=== PATIENT | female | born 1940 | race Caucasian/White ===

== ENCOUNTER → 2017-06-22 | Outpatient (CLI) | payer OTHER ==
[~2017-06-22] MED LIST: ACID REDUCER20 MG PO; DILTIAZEM 24HR240 M1 PO; METO50ER PO; MIRALAX17 GM PO; Multiple Vitam1 EACH PO; Norco 7.5-3251 EACH PO; Prinivil10 MG PO
== END | disposition home or self-care (01) ==
LOC: LAB EV 15:06
DX: J06.9 Acute upper respiratory infection, unspecified (principal)
CPT/HCPCS: 87070

== ENCOUNTER 2018-06-04 07:26 | Day surgery (SDC) | payer OTHER ==
[~2018-06-04] VITALS: Ht 162.6 cm; Wt 89.0 kg
[~2018-06-04 07:26] MED LIST changes: +ACID REDUCER 1150 MG PO; +ATOR10 PO
--- NOTE | 2018-06-04 10:50 | NUR ---
06/04/18 1050 Stacy Rivera INDIGO CARMINE USED FOR ABNORMAL MUCOSA BXS BESIDE CLIP.
== END 2018-06-04 12:25 | disposition home or self-care (01) ==
LOC: ORSCSDS 07:26
PROVIDERS: Student in an Organized Health Care Education/Training Program
PROC: 0DB58ZX Excision of Esophagus, Via Natural or Artificial Opening Endoscopic, Diagnostic (ICD-10-PCS; principal; 2018-06-04 08:45)
PROC: 3E0H8GC Introduction of Other Therapeutic Substance into Lower GI, Via Natural or Artificial Opening Endoscopic (ICD-10-PCS; principal; 2018-06-04 08:45)
PROC: 0DBH8ZX Excision of Cecum, Via Natural or Artificial Opening Endoscopic, Diagnostic (ICD-10-PCS; principal; 2018-06-04 08:45)
DX: K21.9 Gastro-esophageal reflux disease without esophagitis (principal); K22.0 Achalasia of cardia; Z86.010 Personal history of colon polyps; D12.0 Benign neoplasm of cecum; K57.30 Diverticulosis of large intestine without perforation or abscess without bleeding; K64.8 Other hemorrhoids; I10 Essential (primary) hypertension; E78.5 Hyperlipidemia, unspecified; Z79.899 Other long term (current) drug therapy
CPT/HCPCS: 88305; J7120

== ENCOUNTER 2018-07-13 12:12 | Inpatient (IN) | payer OTHER ==
[~2018-07-13] VITALS: Ht 160 cm; Wt 84.2 kg
--- NOTE | 2018-07-14 07:31 | NUR ---
Ambulatory in Day Surgery Patient states colon prep results clear. History, Chart, Medications and Allergies reviewed before start of procedure. Lungs clear T/O to Auscultation. Patient confirms NPO status and agrees with scheduled surgery. Pre-Op teaching done. Pt verbalizes understanding.
--- NOTE | 2018-07-14 09:55 | NUR ---
07/14/18 0955 Lor Sorensen. SENT TO LAB, CONFIRMED POLYP LOCATION PER PATHOLOGIST.
--- NOTE | 2018-07-14 18:25 | NUR ---
SUMMARY PT S/P LAP COLECTOMY THIS SHIFT. VSS. PT SITTING UP IN CHAIR, EATING DINNER. REPORTS PAIN 04/09 TO ABD. DENIES N/V OR SOB. CALL LIGHT IN REACH.
[2018-07-15 05:10] LABS: BASOPHILS ABSOLUTE AUTO 0.02 K/mm3 (0.00-0.23); BASOPHILS PERCENT AUTO 0 % (0-2); EOSINOPHILS PERCENT AUTO 0 % (0-6); Hemoglobin 10.4 g/dL (11.5-16.0); IMMATURE GRAN ABSOLUTE AUTO 0.03 K/mm3 (0.00-0.10); IMMATURE GRAN PERCENT AUTO 0 % (0-1); LYMPHOCYTES ABSOLUTE AUTO 1.54 K/mm3 (0.84-5.20); LYMPHOCYTES PERCENT AUTO 15 % (21-46); MONOCYTES ABSOLUTE AUTO 0.83 K/mm3 (0.16-1.47); MONOCYTES PERCENT AUTO 8 % (4-13); Mean Corpuscular HGB 28.9 pg (26.0-34.0); Mean Corpuscular HGB Conc 31.5 g/dL (31.5-36.5); Mean Corpuscular Volume 92 fL (80-100); Mean Platelet Volume 9.5 fL (9.1-12.4); NEUTROPHILS ABSOLUTE AUTO 7.78 K/mm3 (1.96-9.15); NEUTROPHILS PERCENT AUTO 76 % (41-73); Platelet Count 233 K/mm3 (150-400); RDW Coefficient Variation 15.5 % (11.7-14.2); RDW Standard Deviation 52.5 fL (35.1-46.3)
[2018-07-15 05:28] LABS: Anion Gap 8 mmol/L (6-16); Blood Urea Nitrogen 10 mg/dL (8-24); Bun/Creatinine Ratio 12.1 (12.0-20.0); CO2, Blood 26 mmol/L (21-32); Calcium, Blood 8.1 mg/dL (8.5-10.1); Chloride, Blood 105 mmol/L (98-108); Creatinine, Blood 0.83 mg/dL (0.40-1.00); Glomerular Filtration Rate >60 (60-); Glucose, Blood 115 mg/dL (70-99); Potassium, Blood 4.1 mmol/L (3.5-5.5); Sodium, Blood 139 mmol/L (136-145)
--- NOTE | 2018-07-15 05:53 | NUR ---
POD 1 S/P COLECTOMY. PT VSS T/O NIGHT. DRESSINGS CDI. PT REP MINIMAL PAIN, PAIN MGD W/ORAL PAIN MEDS W/REP RELIEF. PT NAKUL CLEAR LIQ PO, NO C/O N/V, REP NO FLATUS YET. IVF CONT PER ORDERS. PLAN TO D/C PEREZ CATH THIS AM. PT UP OOB W/FWW+1 ASSIST, NAKUL WELL. PT USING CALL LIGHT FOR ASSISTANCE, WILL CONT TO MONITOR UNTIL REP GIVEN TO ONCOMING RN.
--- NOTE | 2018-07-15 11:23 | NUR ---
EDIT FROM PREVIOUS ASSESSMENT. PT VOIDED 250 ML, FIRST VOID AFTER PEREZ REMOVAL AT TIME PREVIOUSLY NOTED IN OUTPUT. URINARY ASSESSMENT IS WNL.
--- NOTE | 2018-07-15 17:50 | NUR ---
SUMMARY PATIENT DENIES PAIN, REPORTS "JUST SLIGHT SORENESS". HAS AMBULATED IN HALLWAYS X3 AND HAS SAT IN CHAIR MOST OF SHIFT. PATIENT NAKUL CLEAR LIQUIDS WITHOUT NAUSEA
--- NOTE | 2018-07-15 21:32 | NUR ---
PHYSICIAN COMMUNICATION 2129. DR. ALLISON NOTIGIED PT HR 54 T/O DAY. 52-54 DURING LAST FEW HRS. PT BT AVGS AND HOME DOSE OF METOPROLOL XL DISCUSSED. PARAMETERS FOR HR FOR METOPROLOL XL GIVEN AND ORDER TO HOLD BEDTIME DOSE TONIGHT.
[2018-07-16 04:46] LABS: BASOPHILS ABSOLUTE AUTO 0.02 K/mm3 (0.00-0.23); BASOPHILS PERCENT AUTO 0 % (0-2); EOSINOPHILS ABSOLUTE AUTO 0.06 K/mm3 (0.00-0.68); EOSINOPHILS PERCENT AUTO 1 % (0-6); Hematocrit 36.1 % (33.0-51.0); Hemoglobin 11.4 g/dL (11.5-16.0); IMMATURE GRAN ABSOLUTE AUTO 0.05 K/mm3 (0.00-0.10); IMMATURE GRAN PERCENT AUTO 0 % (0-1); LYMPHOCYTES ABSOLUTE AUTO 3.75 K/mm3 (0.84-5.20); LYMPHOCYTES PERCENT AUTO 33 % (21-46); MONOCYTES ABSOLUTE AUTO 0.77 K/mm3 (0.16-1.47); MONOCYTES PERCENT AUTO 7 % (4-13); Mean Corpuscular HGB 28.7 pg (26.0-34.0); Mean Corpuscular HGB Conc 31.6 g/dL (31.5-36.5); Mean Corpuscular Volume 91 fL (80-100); Mean Platelet Volume 9.8 fL (9.1-12.4); NEUTROPHILS ABSOLUTE AUTO 6.82 K/mm3 (1.96-9.15); NEUTROPHILS PERCENT AUTO 60 % (41-73); Platelet Count 249 K/mm3 (150-400); RDW Coefficient Variation 15.7 % (11.7-14.2); RDW Standard Deviation 51.8 fL (35.1-46.3); Red Blood Cell Count 3.97 M/mm3 (3.80-5.20); White Blood Cell Count 11.47 K/mm3 (4.00-11.30)
[2018-07-16 05:09] LABS: Anion Gap 6 mmol/L (6-16); Blood Urea Nitrogen 11 mg/dL (8-24); Bun/Creatinine Ratio 13.4 (12.0-20.0); CO2, Blood 27 mmol/L (21-32); Calcium, Blood 8.5 mg/dL (8.5-10.1); Chloride, Blood 105 mmol/L (98-108); Creatinine, Blood 0.82 mg/dL (0.40-1.00); Glomerular Filtration Rate >60 (60-); Glucose, Blood 103 mg/dL (70-99); Potassium, Blood 3.5 mmol/L (3.5-5.5); Sodium, Blood 138 mmol/L (136-145)
--- NOTE | 2018-07-16 06:38 | NUR ---
SHIFT SUMMARY PT A&O X4 T/O SHIFT. POD#2 COLECTOMY; ABD SOFT; DRESSING CDI/PREVENA VAC SEAL INTACT. PAIN MANGED PER EMAR, SCHEDULED TYLENOL ONLY. PT DENIES SOB, NAUSEA AND CP. TOLERATING CLEARS WELL. SEE PHYSICIAN COMMUNICATION NOTE REGARDING HR AND BEDTIME METOPROLOL DOSE. PT INDEPENDENT IN ROOM; UP IN CHAIR FOR A COUPLE HRS BEFORE GOING TO BED. VOIDING WELL. SCD'S TO BLE'S. WCTM UNTIL REPORT TO DAY SHIFT RN.
--- NOTE | 2018-07-16 17:47 | NUR ---
SHIFT SUMMARY PATIENT STATES SHE FEELS 'WONDERFUL.' TOLERATED FL DIET FOR LUNCH W/O C/O NAUSEA OR PAIN; ENCOURAGED TO TAKE SLOWLY. STATES SHE FEELS MUCH BETTER AFTER FL AT LUNCH; 'I WAS JUST FEELING SO WEAK.' GAUZE DRESSINGS X [address] TO A[address] REMOV[address] PER DR MAE'S REQUEST. STERI STRIPS STILL INTACT. PROVENA INTACT. NO S/SX INFECTION NOTED. - FLATUS. UP TO AMBULATE IN WOODS W/FAMILY X 3 THIS SHIFT. VOIDING WELL. NO ACUTE CHANGES OR C/O. DENIES PAIN.
--- NOTE | 2018-07-17 02:58 | NUR ---
SHIFT SUMMARY PT A&O X4 T/O SHIFT. POD#3 LAP CHOLECTOMY; DRESSING AND STERI-STRIPS CDI. PREVENA WOUND VAC SEAL INTACT; SCANT DRAINAGE IN TUBE. ABD SOFT, BT X4; TOLERATING FULL LIQUID DIET WELL; BM X1. ABD PAIN MANAGED PER EMAR. PT DENIES NAUSEA, CP AND SOB T/O SHIFT. RA; VSS. PT INDEPENDENT IN ROOM; PERSONAL CARE SUPPLIES IN ROOM. PT UP IN CHAIR SEVERAL TIMES DURING SHIFT. SCD'S TO BLE'S. CALL LIGHT IN REACH; PT DEMONSTRATES USE. WCTM UNTIL REPORT TO DAY SHIFT RN.
[2018-07-17] MEDS ORDERED: ACET325 PO (08:42)
[2018-07-17] MEDS ORDERED: Norco 5-325 Ta1 EACH PO (08:43)
--- NOTE | 2018-07-17 10:23 | NUR ---
PATIENT D/C'D HOME WITH SON AT THIS TIME. DENIES PAIN, TOLERATING FULL LIQUID DIET W/O C/O. HAD BM THIS AM. PATIENT STATES UNDERSTANDING OF MEDS, WOUND CARE, ACTIVITY, F/U APPT, ETC. NO C/O AT THIS TIME.
== END 2018-07-17 10:25 | disposition home or self-care (01) | DRG 331 ==
LOC: SURS 07-14 05:54 → PRE IP 07-14 07:30 → SURS 07-14 12:43
PROVIDERS: ADMIT Surgery
PROC: 0DTF4ZZ Resection of Right Large Intestine, Percutaneous Endoscopic Approach (ICD-10-PCS; principal; 2018-07-14 07:30)
DX: D12.0 Benign neoplasm of cecum (principal); E66.9 Obesity, unspecified; I10 Essential (primary) hypertension; E78.5 Hyperlipidemia, unspecified; K21.9 Gastro-esophageal reflux disease without esophagitis; Z68.34 Body mass index [BMI] 34.0-34.9, adult
CPT/HCPCS: 36415; 80048; 85025; 86850; 86900; 86901; 88307; J0330; J0461; J0690; J1100; J1650; J1885; J2250; J2405; J2704; J2710; J2765; J3010; J7120

== ENCOUNTER → 2019-06-23 | Outpatient (CLI) | payer OTHER ==
[~2019-06-23] MED LIST changes: +ACET325 PO; +Norco 5-325 Ta1 EACH PO
[2019-06-23 14:50] LABS: Alanine Aminotransfer (ALT/SGP 24 U/L (12-78); Albumin, Blood 3.5 g/dL (3.4-5.0); Alk Phos 70 U/L (50-136); Anion Gap 8 mmol/L (6-16); Aspartate Aminotrans (AST/SGOT 14 U/L (12-37); Bilirubin, Total 0.4 mg/dL (0.1-1.0); Blood Urea Nitrogen 13 mg/dL (8-24); Bun/Creatinine Ratio 14.7 (12.0-20.0); CHOL/HDL RATIO 3.3; CO2, Blood 26 mmol/L (21-32); Chloride, Blood 107 mmol/L (98-108); Cholesterol 175 mg/dL (50-200); Creatinine, Blood 0.88 mg/dL (0.40-1.00); Globulin, Blood 3.4 g/dL (2.2-4.0); Glomerular Filtration Rate >60 (60-); Glucose, Blood 100 mg/dL (70-99); HDL Cholesterol 53 mg/dL (>39); LDL/HDL RATIO 1.8; Low Density Lipoprotein Chol 96 mg/dL (0-110); Potassium, Blood 4.1 mmol/L (3.5-5.5); Sodium, Blood 141 mmol/L (136-145); Total Protein, Blood 6.9 g/dL (6.4-8.2); Triglycerides 130 mg/dL (30-160); Very Low Density Lipoprot Chol 26 mg/dL (6-32)
== END | disposition home or self-care (01) ==
LOC: LAB 13:45 → LAB SHORT 13:45
PROVIDERS: Hospitalist
DX: E78.5 Hyperlipidemia, unspecified (principal); I10 Essential (primary) hypertension
CPT/HCPCS: 80053; 80061

== ENCOUNTER → 2021-02-13 | Outpatient (CLI) | payer OTHER ==
[2021-02-13 15:49] LABS: BASOPHILS ABSOLUTE AUTO 0.06 K/mm3 (0.00-0.23); BASOPHILS PERCENT AUTO 1 % (0-2); EOSINOPHILS ABSOLUTE AUTO 0.18 K/mm3 (0.00-0.68); EOSINOPHILS PERCENT AUTO 2 % (0-6); Hematocrit 40.7 % (33.0-51.0); Hemoglobin 13.2 g/dL (11.5-16.0); IMMATURE GRAN ABSOLUTE AUTO 0.02 K/mm3 (0.00-0.10); IMMATURE GRAN PERCENT AUTO 0 % (0-1); LYMPHOCYTES ABSOLUTE AUTO 2.78 K/mm3 (0.84-5.20); LYMPHOCYTES PERCENT AUTO 29 % (21-46); MONOCYTES ABSOLUTE AUTO 0.74 K/mm3 (0.16-1.47); MONOCYTES PERCENT AUTO 8 % (4-13); Mean Corpuscular HGB 29.2 pg (26.0-34.0); Mean Corpuscular HGB Conc 32.4 g/dL (31.5-36.5); Mean Corpuscular Volume 90 fL (80-100); Mean Platelet Volume 9.5 fL (9.1-12.4); NEUTROPHILS ABSOLUTE AUTO 5.76 K/mm3 (1.96-9.15); NEUTROPHILS PERCENT AUTO 60 % (41-73); Platelet Count 340 K/mm3 (150-400); RDW Coefficient Variation 15.6 % (11.7-14.2); RDW Standard Deviation 51.8 fL (35.1-46.3); Red Blood Cell Count 4.52 M/mm3 (3.80-5.20); White Blood Cell Count 9.54 K/mm3 (4.00-11.30)
[2021-02-13 16:25] LABS: Albumin, Blood 3.5 g/dL (3.4-5.0); Albumin/Globulin Ratio 0.9 (0.8-1.8); Bilirubin, Total 0.4 mg/dL (0.1-1.0); Bun/Creatinine Ratio 26.2 (12.0-20.0); Calcium, Blood 9.7 mg/dL (8.5-10.1); Creatinine, Blood 0.92 mg/dL (0.40-1.00); Globulin, Blood 4.1 g/dL (2.2-4.0); Potassium, Blood 4.3 mmol/L (3.5-5.5); Total Protein, Blood 7.6 g/dL (6.4-8.2)
== END | disposition home or self-care (01) ==
LOC: LAB SHORT 13:33
PROVIDERS: Hospitalist
DX: R53.1 Weakness (principal); R19.7 Diarrhea, unspecified
CPT/HCPCS: 80053; 85025

== ENCOUNTER 2022-08-08 08:48 | Day surgery (SDC) | payer OTHER ==
[~2022-08-08] VITALS: Ht 160 cm; Wt 95.5 kg
[2022-08-08] MEDS ORDERED: OMEP20ER (09:07)
[2022-08-08 11:00] VITALS: BP 138/69
== END 2022-08-08 10:50 | disposition home or self-care (01) ==
LOC: ORSCSDS 08:48
PROVIDERS: Student in an Organized Health Care Education/Training Program
PROC: 0DB68ZX Excision of Stomach, Via Natural or Artificial Opening Endoscopic, Diagnostic (ICD-10-PCS; principal; 2022-08-08 10:00)
PROC: 3E0G8GC Introduction of Other Therapeutic Substance into Upper GI, Via Natural or Artificial Opening Endoscopic (ICD-10-PCS; principal; 2022-08-08 10:00)
DX: R13.10 Dysphagia, unspecified (principal); K22.0 Achalasia of cardia; K31.7 Polyp of stomach and duodenum; K21.9 Gastro-esophageal reflux disease without esophagitis; I10 Essential (primary) hypertension; E78.5 Hyperlipidemia, unspecified; Z79.899 Other long term (current) drug therapy
CPT/HCPCS: 88305; J0585; J2704; J7120

== ENCOUNTER → 2023-01-10 | Outpatient (CLI) | payer OTHER ==
[~2023-01-10] MED LIST changes: +OMEP20ER
[2023-01-10 15:51] LABS: Creatinine, Urine Random 88.4 mg/dL (27.00-270.00); Microalb/Creat Ratio UR, Rand 24.434 mg/g (0.000-30.000); Microalbumin, Random Urine 21.6 mg/L (0.000-20.000)
== END ==
LOC: LAB SHORT 14:01 → LAB 14:01
PROVIDERS: Hospitalist
DX: E78.5 Hyperlipidemia, unspecified (principal); E11.69 Type 2 diabetes mellitus with other specified complication; I10 Essential (primary) hypertension
CPT/HCPCS: 82043; 82570; 83036

== ENCOUNTER → 2023-05-28 | Outpatient (CLI) | payer OTHER ==
[2023-05-28 18:24] LABS: Bun/Creatinine Ratio 19.4 (12.0-20.0); Calcium, Blood 9.6 mg/dL (8.5-10.1); Creatinine, Blood 0.88 mg/dL (0.40-1.00); Potassium, Blood 3.8 mmol/L (3.5-5.5)
== END | disposition home or self-care (01) ==
LOC: LAB SHORT 13:50
PROVIDERS: Hospitalist
DX: I10 Essential (primary) hypertension (principal)
CPT/HCPCS: 80048

== ENCOUNTER → 2023-11-26 | Outpatient (CLI) | payer OTHER ==
[2023-11-26 19:46] LABS: Anion Gap 12 mmol/L (3-11); Blood Urea Nitrogen 16 mg/dL (8-24); CHOL/HDL RATIO 2.8; CO2, Blood 29 mmol/L (21-32); Calcium, Blood 9.1 mg/dL (8.5-10.1); Chloride, Blood 101 mmol/L (98-108); Cholesterol 145 mg/dL (50-200); Glomerular Filtration Rate 56 (60-); Glucose, Blood 108 mg/dL (70-99); HDL Cholesterol 51 mg/dL (>39); LDL/HDL RATIO 1.5; Low Density Lipoprotein Chol 74 mg/dL (0-110); Potassium, Blood 4.1 mmol/L (3.5-5.5); Sodium, Blood 138 mmol/L (136-145); Triglycerides 100 mg/dL (30-160); Very Low Density Lipoprot Chol 20 mg/dL (6-32)
[2023-11-26 19:56] LABS: Creatinine, Urine Random 66.8 mg/dL (27.00-270.00); Microalb/Creat Ratio UR, Rand 9.895 mg/g (0.000-30.000); Microalbumin, Random Urine 6.61 mg/L (0.000-20.000)
== END ==
LOC: LAB SHORT 18:37 → LAB 18:37
PROVIDERS: Hospitalist
DX: E78.5 Hyperlipidemia, unspecified (principal); I10 Essential (primary) hypertension; E11.69 Type 2 diabetes mellitus with other specified complication
CPT/HCPCS: 80048; 80061; 82043; 82570; 83036

== ENCOUNTER → 2025-01-31 | Outpatient (CLI) | payer OTHER ==
[2025-01-31 18:45] LABS: Anion Gap 9 mmol/L (3-11); Blood Urea Nitrogen 20 mg/dL (8-24); CHOL/HDL RATIO 2.8; CO2, Blood 29 mmol/L (21-32); Calcium, Blood 9.6 mg/dL (8.5-10.1); Chloride, Blood 101 mmol/L (98-108); Cholesterol 144 mg/dL (50-200); Creatinine, Blood 0.91 mg/dL (0.40-1.00); Glucose, Blood 122 mg/dL (70-99); HDL Cholesterol 52 mg/dL (>39); LDL/HDL RATIO 1.4; Low Density Lipoprotein Chol 74 mg/dL (0-110); Potassium, Blood 4.2 mmol/L (3.5-5.5); Sodium, Blood 135 mmol/L (136-145); Triglycerides 88 mg/dL (30-160); Very Low Density Lipoprot Chol 17 mg/dL (6-32)
[2025-01-31 20:40] LABS: Creatinine, Urine Random 62.8 mg/dL (27.00-270.00); Microalb/Creat Ratio UR, Rand 11.576 mg/g (0.000-30.000); Microalbumin, Random Urine 7.27 mg/L (0.000-20.000)
== END ==
LOC: LAB 17:37 → LAB SHORT 17:37
PROVIDERS: Hospitalist
DX: E78.5 Hyperlipidemia, unspecified (principal); E11.69 Type 2 diabetes mellitus with other specified complication; I10 Essential (primary) hypertension
CPT/HCPCS: 80048; 80061; 82043; 82570